=== PATIENT | male | born 1965 | race Caucasian/White ===

== ENCOUNTER 2022-05-29 01:15 | Emergency (ER) | payer SELFPAY ==
--- NOTE | 2022-05-29 01:30 | NUR ---
Patient signed AMA from ambulance
[2022-05-29] MEDS ORDERED: IPRATROPIUM/ALBUTEROL SULFATE 3 ML AMPUL.NEB (DUONEB) ONE (03:37)
== END 2022-05-29 01:30 | disposition left against medical advice (07) ==
LOC: SED 01:15
DX: R06.02 Shortness of breath (principal); Z53.21 Procedure and treatment not carried out due to patient leaving prior to being seen by health care provider